=== PATIENT | male | born 1955 | race Caucasian/White ===

== ENCOUNTER 2019-05-01 14:03 | Day surgery (SDC) | payer OTHER ==
[~2019-05-01] VITALS: Ht 175.3 cm; Wt 68.4 kg
[~2019-05-01 14:03] MED LIST: ALLO100 PO; ASPI325 PO; CIPR500 PO; CLARITIN-D 121 EACH PO; CYCL10 PO; Flexeril5 MG; GABA300 PO; HYDACE10B PO; LORA10ER PO; METPRE4DP PO
== END 2019-05-01 16:30 | disposition home or self-care (01) ==
LOC: ORSCSDS 14:03
PROVIDERS: Surgery
PROC: 0DBP8ZX Excision of Rectum, Via Natural or Artificial Opening Endoscopic, Diagnostic (ICD-10-PCS; principal; 2019-05-01 15:15)
PROC: 0DBK8ZX Excision of Ascending Colon, Via Natural or Artificial Opening Endoscopic, Diagnostic (ICD-10-PCS; principal; 2019-05-01 15:15)
PROC: 0DBL8ZX Excision of Transverse Colon, Via Natural or Artificial Opening Endoscopic, Diagnostic (ICD-10-PCS; principal; 2019-05-01 15:15)
DX: Z12.11 Encounter for screening for malignant neoplasm of colon (principal); D12.2 Benign neoplasm of ascending colon; D12.3 Benign neoplasm of transverse colon; D12.8 Benign neoplasm of rectum; Z86.010 Personal history of colon polyps; Z87.891 Personal history of nicotine dependence
CPT/HCPCS: 88305; J2704; J7120

== ENCOUNTER 2019-10-14 19:16 | Emergency (ER) | payer OTHER ==
[~2019-10-14] VITALS: Ht 172.7 cm; Wt 70.3 kg
[2019-10-14] MEDS ORDERED: Percocet 5-3251 EACH PO (20:21)
== END 2019-10-14 20:30 | disposition home or self-care (01) ==
LOC: ER 19:16
DX: S42.022A Displaced fracture of shaft of left clavicle, initial encounter for closed fracture (principal); S69.92XA Unspecified injury of left wrist, hand and finger(s), initial encounter; Z88.8 Allergy status to other drugs, medicaments and biological substances; Z79.899 Other long term (current) drug therapy; Z87.891 Personal history of nicotine dependence; V00.131A Fall from skateboard, initial encounter
CPT/HCPCS: 73000; 73110; 99283-25; A9270

== ENCOUNTER 2024-08-23 07:18 | Day surgery (SDC) | payer OTHER ==
[~2024-08-23] VITALS: Ht 175.3 cm; Wt 74.8 kg
[~2024-08-23 07:18] MED LIST changes: +Percocet 5-3251 EACH PO
[2024-08-23] MEDS ORDERED: propofoL 50 ML IV ONE (07:19)
[2024-08-23] MEDS ORDERED: Lactated Ringer's 1,000 ML IV ONE ×2 (07:19→09:01)
[2024-08-23] MEDS ORDERED: Ondansetron HCl 2 MG / ML 2ML Vial ONE (09:37)
[2024-08-23 10:44] VITALS: BP 132/74
== END 2024-08-23 10:17 | disposition home or self-care (01) ==
LOC: ORSCSDS 07:18
PROVIDERS: Surgery
PROC: 0DBL8ZX Excision of Transverse Colon, Via Natural or Artificial Opening Endoscopic, Diagnostic (ICD-10-PCS; principal; 2024-08-23 08:45)
PROC: 0DBH8ZX Excision of Cecum, Via Natural or Artificial Opening Endoscopic, Diagnostic (ICD-10-PCS; principal; 2024-08-23 08:45)
PROC: 0DBM8ZX Excision of Descending Colon, Via Natural or Artificial Opening Endoscopic, Diagnostic (ICD-10-PCS; principal; 2024-08-23 08:45)
DX: Z12.11 Encounter for screening for malignant neoplasm of colon (principal); D12.0 Benign neoplasm of cecum; D12.3 Benign neoplasm of transverse colon; D12.4 Benign neoplasm of descending colon; K57.30 Diverticulosis of large intestine without perforation or abscess without bleeding; K64.8 Other hemorrhoids; K64.4 Residual hemorrhoidal skin tags; Z86.0101 Personal history of adenomatous and serrated colon polyps; I10 Essential (primary) hypertension; Z85.46 Personal history of malignant neoplasm of prostate; Z79.899 Other long term (current) drug therapy; Z87.891 Personal history of nicotine dependence
CPT/HCPCS: 88305; J2405; J2704; J7120